=== PATIENT | female | born 2000 | race Caucasian/White ===

== ENCOUNTER 2023-07-06 12:15 | Emergency (ER) | payer BC, OTHER, MEDICARE, SELFPAY ==
[2023-07-06 12:27] VITALS: BP 135/76; PULSE 72; RESP 16; TEMP 37.4; O2SAT 99; BMI 33.3
--- NOTE | 2023-07-06 12:42 | ED_ITS ---
HPI - General Adult General Chief complaint: Urogenital Problems, Female Stated complaint: Needs STD check Time Seen by Provider: 07/06/23 12:21 History of Present Illness HPI narrative: This 22-year-old female comes in stating that her boyfriend reported to her that he was positive for chlamydia. She comes in wanting to be checked. She states that she last had an encounter with him about 2 weeks ago and that he has other partners. She reports that she has a child with this particular man. She does not report any symptoms and has not had any fevers or discharge. Related Data Previous Rx's Medication Instructions Recorded azithromycin 1 gram oral packet 1 g PO DAILY #1 packet 07/06/23 (Zithromax) Allergies Allergy/AdvReac Type Severity Reaction Status Date / Time amoxicillin Allergy Intermediate hives Verified 07/06/23 12:27 Penicillins Allergy Intermediate Hives Verified 07/06/23 12:27 Review of Systems Status of ROS: Reports: 10 or more systems reviewed and unremarkable except as noted in History and below Narrative: Constitutional: No fevers, no weight gain or loss. Eyes: No discharge. No vision changes. HENT: No congestion, no sore throat, no ear pain. Cardiovascular: No chest pain, no palpitations. Respiratory: No shortness of breath, no wheezes, no cough. Gastrointestinal: No abdominal pain, no vomiting, no diarrhea. Genitourinary: No dysuria, no hematuria. Musculoskeletal: Normal range of motion. Skin: No rashes, no pruritis. Neurological: No dizziness, weakness, sensory change, speech change. Endo/Heme/Allergies: No bruising or bleeding. No polydipsia. Pysch: no suicidality, no anxiety, no insomnia. All other systems reviewed and are negative. PFSH PFS Social History Smoking Status: Never smoker Do you use any of these nicotine containing products: Vaping Products Second hand tobacco smoke exposure: No How often do you have a drink containing alcohol: 2-4 times a month AUDIT-C Alcohol total score: 2 Non-prescribed substance use: marijuana (any form) service: No Exam Narrative: Exam Narrative: Constitutional: Well-developed, well-nourished, no acute distress. HEENT: Normocephalic, atraumatic. Neck: Normal range of motion. Nontender. Supple. Heart: Regular. No murmurs. Normal rate. Intact distal pulses. Lungs: Clear to auscultation. No chest discomfort. No wheezes, rhonchi, or rales. Abdomen: Normal bowel sounds. Nontender. No rebound tenderness. Genitalia: Normal exam, no discharge or tenderness on exam. Back: No midline tenderness. Normal range of motion. Extremities: Normal range of motion. No injury. Skin: Intact. No rash. Warm. No erythema or pallor. Neurologic: No altered sensation. No weakness. Alert and oriented. Psychiatric: No suicidality. No anxiety or depression. No insomnia. Nursing notes and vitals signs are reviewed. Const: Vital Signs, click to edit/add: Vital Signs - 24 hr 07/06/23 12:27 Temperature 99.3 F Pulse Rate [Pulse Oximeter] 72 Respiratory Rate 16 Blood Pressure [Le ft Upper Arm] 135/76 Pulse Oximetry 99 Oxygen Delivery Me thod Room Air Course Vital Signs Vital signs: Initial Vital Signs Temperature 99.3 F 07/06/23 12:27 Temperature Source Temporal Artery Scan 07/06/23 12:27 Pulse Rate 72 07/06/23 12:27 Pulse Rhythm Regular 07/06/23 12:27 Pulse Strength 3+ Normal 07/06/23 12:27 Respiratory Rate 16 07/06/23 12:27 Blood Pressure 135/76 07/06/23 12:27 Blood Pressure Mean 95 07/06/23 12:27 Blood Pressure Position Sitting 07/06/23 12:27 Pulse Oximetry 99 07/06/23 12:27 Oxygen Delivery Method Room Air 07/06/23 12:27 Vital Signs Temperature 99.3 F 07/06/23 12:27 Pulse Rate 72 07/06/23 12:27 Respiratory Rate 16 07/06/23 12:27 Blood Pressure 135/76 07/06/23 12:27 Pulse Oximetry 99 07/06/23 12:27 Oxygen Delivery Method Room Air 07/06/23 12:27 Temperature 99.3 F 07/06/23 12:27 Pulse Rate 72 07/06/23 12:27 Respiratory Rate 16 07/06/23 12:27 Blood Pressure 135/76 07/06/23 12:27 Pulse Oximetry 99 07/06/23 12:27 Oxygen Delivery Method Room Air 07/06/23 12:27 Medical Decision Making MDM Narrative Medical decision making narrative: This patient comes in feeling normal but heard from her significant other that he was positive for chlamydia. She wishes to be tested for sexually transmitted diseases. A vaginitis panel was ordered. Patient is currently menstruating. I did acquire a endocervical sample for testing. The patient did receive an intramuscular injection of Rocephin 250 mg and a prescription for Zithromax 1000 mg. Discharge Plan Discharge Clinical Impression: Encounter for assessment of STD exposure Patient Disposition: Home, Self-Care Condition: Stable Additional Instructions: Take medication as prescribed. Follow up with MD return if worsening. Prescriptions: New azithromycin [Zithromax] 1 gram packet 1 g PO DAILY Qty: 1 0RF Follow Up/Referrals: Provider,Not a Local [Primary Care Provider] - Stand Alone Forms: [employer] Info Instructions
[2023-07-06] MEDS: LIDOCAINE 1% 5 ml (pf) 5 ML VIAL 0.9 ML IM (13:19)
[2023-07-06] MEDS: cefTRIAXone 250 MG VIAL IM (13:19)
[2023-07-06 14:11] LABS: Candida glab/krus NOT DETECTED (No Detected); Candida species NOT DETECTED (No Detected); Trichomonas vaginalis NOT DETECTED (No Detected)
[2023-07-06 14:12] LABS: Bacterial Vaginosis* NOT DETECTED (No Detected)
[2023-07-06 14:42] LABS: Chlamydia DNA Amplified* NOT DETECTED (No Detected); GC DNA Amplified* NOT DETECTED (No Detected)
== END 2023-07-06 13:24 | disposition home or self-care (01) ==
PROVIDERS: Emergency Provider Emergency Medicine Emergency Medical Services
DX: Z20.2 Contact with and (suspected) exposure to infections with a predominantly sexual mode of transmission (principal)
CPT/HCPCS: 81513; 87210; 87481; 87491; 87591; 87661; 96372; 99283; 99284; J0696

== ENCOUNTER 2023-09-21 12:26 | Emergency (ER) | payer BC, OTHER, MEDICARE, SELFPAY ==
--- NOTE | 2023-09-21 12:29 | ED.GENADULT ---
HPI - General Adult General Date Seen: 09/21/23 Chief complaint: Urogenital Problems, Female Stated complaint: Needs STI/yeast infection test Time Seen by Provider: 09/21/23 12:27 History of Present Illness HPI narrative: This is a 22-year-old female who is presenting to the ER today, accompanied by her friend, with concern for sexually transmitted infection exposure. She had been seen here a couple of months ago for STI exposure and was treated empirically for cervicitis. Gonorrhea and chlamydia testing came back negative after that visit, however. She recently had another sexual encounter with the gentleman periods for the past few days she developed symptoms of vaginal irritation, dysuria and vaginal pain when wiping after she urinates, and change in her vaginal discharge. It is changed from being fairly clear to a little bit cloudy. She is not having any pelvic pain. No fever or chills. No vaginal bleeding. She does not think she is . Related Data Previous Rx's ?Medication ?Instructions ?Recorded doxycycline hyclate 100 mg capsule 100 mg PO BID 7 days #14 caps 09/21/23 metronidazole 500 mg tablet 500 mg PO Q12H #14 tabs 09/21/23 Allergies Allergy/AdvReac Type Severity Reaction Status Date / Time amoxicillin Allergy Intermediate hives Verified 09/21/23 12:35 Penicillins Allergy Intermediate Hives Verified 09/21/23 12:35 PFSH PFSH Social History Smoking Status: Never smoker Do you use any of these nicotine containing products: Vaping Products Second hand tobacco smoke exposure: No How often do you have a drink containing alcohol: 2-4 times a month AUDIT-C Alcohol total score: 2 Non-prescribed substance use: marijuana (any form) service: No Exam Narrative: Exam Narrative: Constitutional: Appears well-developed and well-nourished. Active. Non-toxic appearing. Polite HENT: Head: Atraumatic. No signs of injury. Nose: No nasal discharge. Mouth/Throat: Mucous membranes are moist. Eyes: Conjunctivae normal and EOM are normal. Pupils are equal, round, and reactive to light. Right eye exhibits no discharge. Left eye exhibits no discharge. No icterus. Neck: Normal range of motion. Neck supple. No adenopathy. No stridor. Cardiovascular: Normal rate and regular rhythm. No murmur heard. No murmurs, rubs, or gallops. Brisk capillary refill Pulmonary/Chest: Effort normal. No stridor. No respiratory distress. No wheezes.No rhonchi. No rales. No retractions. Abdominal: Soft. No distension. No mass. There is no tenderness. There is no rebound and no guarding. Musculoskeletal: Normal range of motion. No edema.No deformity. Neurological: Alert. Normal strength. No cranial nerve deficit or sensory deficit. Coordination normal. GCS eye subscore is 4. GCS verbal subscore is 5. GCS motor subscore is 6. Skin: Skin is warm. No rash noted. Pelvic: Exam performed by my ER PA student. Per report she had no herpetic lesions. Minimal vaginal discharge. Endocervical swabs and vaginal swabs were obtained. Const: Vital Signs, click to edit/add: Vital Signs - 24 hr 09/21/23 12:30 Temperature 99.2 F Pulse Rate [Pulse Oximeter] 95 Respiratory Rate 18 Blood Pressure [Ri ght Upper Arm] 116/75 Pulse Oximetry 99 Oxygen Delivery Me thod Room Air Course Vital Signs Vital signs: Initial Vital Signs Temperature 99.2 F 09/21/23 12:30 Temperature Source Temporal Artery Scan 09/21/23 12:30 Pulse Rate 95 09/21/23 12:30 Respiratory Rate 18 09/21/23 12:30 Blood Pressure 116/75 09/21/23 12:30 Blood Pressure Mean 88 09/21/23 12:30 Blood Pressure Position Sitting 09/21/23 12:30 Pulse Oximetry 99 09/21/23 12:30 Oxygen Delivery Method Room Air 09/21/23 12:30 Vital Signs Temperature 99.2 F 09/21/23 12:30 Pulse Rate 95 09/21/23 12:30 Respiratory Rate 18 09/21/23 12:30 Blood Pressure 116/75 09/21/23 12:30 Pulse Oximetry 99 09/21/23 12:30 Oxygen Delivery Method Room Air 09/21/23 12:30 Temperature 99.2 F 09/21/23 12:30 Pulse Rate 95 09/21/23 12:30 Respiratory Rate 18 09/21/23 12:30 Blood Pressure 116/75 09/21/23 12:30 Pulse Oximetry 99 09/21/23 12:30 Oxygen Delivery Method Room Air 09/21/23 12:30 Medical Decision Making MDM Narrative Medical decision making narrative: This is a pleasant 22-year-old female presenting to the ER today with symptoms of vaginal irritation, mild dysuria and concern for unprotected sexual contact. She did have sex with a male partner a couple of weeks ago and previously he had exposed her to chlamydia. She is not sure if he was ever treated for his infection. She also believes him to have other partners. She is concerned about STDs. We discussed options for evaluation and treatment. She agrees to go ahead with empiric treatment for gonorrhea, chlamydia, and Trichomonas/bacterial vaginosis. She is treated with Rocephin and Azithromycin here in the ER. Will also put her on a 7 day course of doxycycline 100 mg b.i.d. to cover for resistant chlamydia. Also 7 days of metronidazole took cover for possible trich or BV. Exam showed no evidence for fascicular lesions or herpes. We discussed other potential sexually transmitted infections such as syphilis or HIV. Patient declines any lab tests or workup for those infections today. Urine test is negative. Although she endorses some dysuria, urinalysis is negative today. No signs of UTI. Suspect the dysuria is probably related to irritation of the vaginal mucosa. Lab Data Labs: Lab Results 09/21/23 Range/Units 13:12 Urine Color Yellow (Yellow) Urine Appearance Clear (Clear) Urine pH 7.0 (5.0-8.5) Ur Specific [place] 1.015 (1.000-1.030) Urine Protein Negative (Negative) Urine Glucose (UA) Negative (Negative) Urine Ketones Negative (Negative) Urine Blood Trace-intact A (Negative) Urine Nitrite Negative (Negative) Urine Bilirubin Negative (Negative) Urine Urobilinogen 0.2 (0.2-1.0) Ur Leukocyte Esterase Negative (Negative) Urine RBC 0-2 (0-2) Urine WBC 0-2 (0-5) Ur Squamous Epith Cells Few (None-Few) Urine Bacteria Few A (None) Urine HCG, Qual Negative (Negative) Discharge Plan Discharge Clinical Impression: Encounter for assessment of STD exposure, Vaginitis Patient Disposition: Home, Self-Care Condition: Stable Instructions: Sexually Transmitted Diseases (ED), Safe Sex Practices (ED), Vaginal Discharge (ED) Additional Instructions: As we discussed, the results of your tests are not back from the laboratory yet. They will likely come back tomorrow. However we are going to treat you with a combination of antibiotics to cover for most of the common sexually transmitted infections. We will give you a 1st dose of antibiotics as a shot and as pills here in the ER. However, some sexually transmitted infections are resistant to treatment with single dose medications. Therefore, it is important for you to continue on the prescription for the additional antibiotics (doxycycline and metronidazole) twice daily for 1 week. While you are on these antibiotics do not drink alcohol. While your on these antibiotics avoid sun exposure. Please follow-up with your regular doctor for a recheck if you have any concerns. You can come back to the ER any time if you have problems. Prescriptions: New doxycycline hyclate 100 mg capsule 100 mg PO BID 7 Days Qty: 14 0RF metronidazole 500 mg tablet 500 mg PO Q12H Qty: 14 0RF Follow Up/Referrals: Provider,Not a Local [Primary Care Provider] - Stand Alone Forms: [employer] Info Instructions
[2023-09-21 12:30] VITALS: BP 116/75; PULSE 95; RESP 18; TEMP 37.3; O2SAT 99; BMI 37.4
[2023-09-21 13:21] LABS: Appearance Urine Clear (Clear); Bilirubin Urine Negative (Negative); Blood Urine Trace-intact (Negative); Color Urine Yellow (Yellow); Glucose Urine Negative (Negative); Ketones Urine Negative (Negative); Leukocyte Esterase Urine Negative (Negative); Nitrite Urine Negative (Negative); Protein Urine Negative (Negative); Specific Gravity Urine 1.015 (1.000-1.030); Urobilinogen Urine 0.2 (0.2-1.0)
[2023-09-21 13:22] LABS: Ur HCG Qualitative* Negative (Negative)
[2023-09-21 13:36] LABS: Bacteria Urine Few; RBC Urine 0-2 (0-2); Squamous Epithelial Cell Urine Few (None-Few); WBC Urine 0-2 (0-5)
[2023-09-21] MEDS: metroNIDAZOLE 500 MG TABLET PO (13:54)
[2023-09-21] MEDS: DOXYCYCLINE HYCLATE 100 MG PO (13:54)
[2023-09-21] MEDS: cefTRIAXone 500 MG VIAL IM (13:54)
[2023-09-21] MEDS: AZITHROMYCIN 250 MG TABLET 1000 MG PO (13:54)
[2023-09-21] MEDS: LIDOCAINE 1% 5 ml (pf) 5 ML VIAL 1 ML IM (13:55)
[2023-09-21 14:40] LABS: Bacterial Vaginosis* Negative (Negative); Candida glab/krus NOT DETECTED (No Detected); Candida species DETECTED (No Detected); Trichomonas vaginalis NOT DETECTED (No Detected)
[2023-09-21 15:12] LABS: Chlamydia DNA Amplified* NOT DETECTED (No Detected); GC DNA Amplified* NOT DETECTED (No Detected)
== END 2023-09-21 14:09 | disposition home or self-care (01) ==
PROVIDERS: Emergency Provider Emergency Medicine
DX: N76.0 Acute vaginitis (principal); Z20.2 Contact with and (suspected) exposure to infections with a predominantly sexual mode of transmission
CPT/HCPCS: 81001; 81025; 81513; 87086; 87210; 87481; 87491; 87591; 87661; 96372; 99282; 99284; A9270; J0696